=== PATIENT | male | born 1955 | race Caucasian/White ===

== ENCOUNTER 2017-02-19 17:10 | Inpatient (IN) | payer OTHER ==
[~2017-02-19] VITALS: Ht 182.9 cm; Wt 73.5 kg
--- NOTE | ~2017-02-19 | 2DMMODE ---
[facility] [place] [place] [address] 2 D/M-MODE ECHOCARDIOGRAM Name: FABIAN MATIAS Room #: 213-P ADM IN M.R.#: [id number] Admission: 02/19/17 Attend Phys: Vanessa Townsend Discharge: Date of : 51 Date of Service: 02/20/17 1032 Report #: [id number] THIS REPORT FOR: //name// APPROVED REPORT Study performed: 02/20/2017 09:00:42 EXAM: Comprehensive 2D, Doppler, and color-flow Echocardiogram Patient Location: Bedside Room #: 213 Status: routine BSA: 1.95 HR: 70 bpm BP: 125/77 mmHg Other Information Study Quality: Adequate Indications Dyspnea Chest Pain 2D Dimensions RVDd: 32.17 mm LVOT Diam: 21.72 (18-24mm) IVC: 14.00 mm Volumes Left Atrial Volume (Systole) Single Plane 4CH: 34.51 mL Single Plane 2CH: 33.67 mL LA ESV Index: 20.00 mL/m2 Aortic Valve AoV Peak Mando.: 1.35 m/s AO Peak Gr.: 7.32 mmHg LVOT Max P.44 mmHg LVOT Max V: 0.93 m/s MANUELA Vmax: 2.54 cm2 Mitral Valve E/A Ratio: 1.1 MV Decel. Time: .13 ms MV E Max Mando.: 0.73 m/s MV A Mando.: 0.67 m/s MV PHT: 58.91 ms IVRT: 64.59 ms [facility] [address] [place] [address] 2 D/M-MODE ECHOCARDIOGRAM Name: FABIAN MATIAS Room #: 213-P [facility] IN ..#: [id number] Admission: 02/19/17 Attend Phys: Vanessa Townsend Discharge: Date of : 51 Date of Service: 02/20/17 1032 Report #: [id number] Pulmonary Valve PV Peak Mando.: 0.77 m/s PV Peak Gr.: 2.35 mmHg Pulmonary Vein P Vein S: 0.42 m/s P Vein A: 0.28 m/s P Vein D: 0.28 m/s P Vein A Dur.: 101.5 msec P Vein S/D Ratio: 1.50 Left Ventricle The left ventricle is normal size. There is normal left ventricular wall thickness. The left ventricular systolic function is normal. The left ventricular ejection fraction is within the normal range. LVEF is 55-60%. The left ventricular diastolic function is normal. Right Ventricle The right ventricle is normal size. The right ventricular systolic function is normal. Atria The left atrium size is normal. The right atrium size is normal. Aortic Valve The aortic valve is normal in structure. No aortic regurgitation is present. There is no aortic valvular stenosis. Mitral Valve The mitral valve is normal in structure. Trace mitral regurgitation. No evidence of mitral valve stenosis. Tricuspid Valve The tricuspid valve is normal in structure. There is no tricuspid valve regurgitation noted. Pulmonic Valve The pulmonary valve is normal in structure. There is no pulmonic valvular regurgitation. Great Vessels The aortic root is normal in size. IVC is normal in size and collapses >50% with inspiration. Pericardium There is no pericardial effusion. [facility] [place] [address] [place] [address] 2 D/M-MODE ECHOCARDIOGRAM Name: FABIAN MATIAS Room #: 213-P ADM IN M.R.#: [id number] Admission: 02/19/17 Attend Phys: Vanessa Townsend Discharge: Date of : 51 Date of Service: 02/20/17 103 Report #: [id number] <Conclusion> The left ventricle is normal size. LVEF is 55-60%. The aortic valve is normal in structure. The mitral valve is normal in structure. Trace mitral regurgitation. The tricuspid valve is normal in structure. The pulmonary valve is normal in structure. There is no pericardial effusion. <ELECTRONICALLY SIGNED> By: Marcio Choi MD 02/20/171031 31 1032 Marcio Choi MD /INF
--- NOTE | ~2017-02-19 | EXE ---
[facility] [address] [place] [address] STRESS ECHOCARDIOGRAM Name: FABIAN MATIAS Room #: 213-P ADM IN M.R.#: [id number] Admission: 02/19/17 Attend Phys: Vanessa Townsend Discharge: Date of : 51 Date of Service: 02/20/17 1619 Report #: [id number] THIS REPORT FOR: //name// APPROVED REPORT Exam: Stress Echocardiogram Indication: Chest pain , Palpitations Patient Location: Echo lab Stress Nurse: Rubia Burns RN Room #: 213 Status: routine Ht: 6 ft 0 in HR: 83 bpm BP: 128/78 mmHg Rhythm: NSR with PVCs noted. Medical History Medications: No cardiac medications Allergies: No known drug allergies Cardiac Risk Factors: FHX of CAD Echo Enhancing Agent Indication: Endocardial border delineation Agent(s) / Amount(s) Used: Optison 3 cc Stress Test Details Stress Test: Exercise stress testing was performed using a Kash protocol. HR Resting HR: 83 bpm Max Heart Rate (APMHR): 157 bpm Max HR Achieved: 164 bpm Target HR (85% APMHR): 133 bpm % of APMHR: 104 Recovery HR: 111 bpm HR response to stress: Normal HR response to stress BP Resting BP: 128/78 mmHg Max BP: 190/90 mmHg Recovery BP: 160/70 mmHg ECG Resting ECG: Sinus Rhythm Stress ECG: Sinus Tachycardia Arrhythmia: None Recovery ECG: Sinus Rhythm [facility] [address] [place] [address] STRESS ECHOCARDIOGRAM Name: KARYYENYFABIAN Mantilla Paige Room #: 213-P [facility] IN ..#: [id number] Admission: 02/19/17 Attend Phys: Vanessa Townsend Discharge: Date of : 51 Date of Service: 02/20/171618 Report #: [id number] Clinical Reason for Termination: Completed protocol/fatigue Exercise duration: 8 min 16 sec Highest Stage Achieved: Stage 3: 3.4 mph at 14% grade. Exercise capacity: 10.40 METs Stress ECG Conclusion 1. SUBJECTIVELY NEGATIVE FOR IASCHEMIA 2.ELECTROCARDIOGRAPHICALLY NEGATIVE FOR ISCHEMIA 3. AVERAGE FUNCTIONAL CAPACITY Pre-Stress Echo The resting Echocardiogram showed normal left ventricular contractility with an estimated Ejection Fraction of about 55-60%. No significant valvualr abnormalities noted. Post-Stress Echo The stress Echocardiogram showed normal left ventricular contractility with an estimated Ejection Fraction of about >70%. Normal augmentation of wall motion in all segments on post stress images. Conclusion Clinical Response: Non-ischemic Exercise Capacity: Average Stress ECG Response: Non-ischemic Stress Echo Images: Non-ischemic 1. LOW RISK STUDY Other Information Study Quality: Adequate <Conclusion> 1. LOW RISK STUDY <ELECTRONICALLY SIGNED> By: Marcio Choi MD [id number] 18 Marcio Choi MD /INF
--- NOTE | ~2017-02-19 | EKG ---
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
[2017-02-19 17:14] VITALS: BP 176/95
[2017-02-19 17:36] LABS: ABSOLUTE NEUTROPHILS 5.5 thou/uL (1.4-8.2); BASOPHILS 0.5 % (0.0-2.0); EOSINOPHILS 1.2 % (0.0-3.0); HEMATOCRIT 45.6 % (42.0-52.0); HEMOGLOBIN 15.6 gm/dL (14.0-18.0); LYMPHOCYTES 15.8 % (24.0-44.0); MANUAL DIFF NO; MCH 29.3 pg (26.0-34.0); MCHC 34.2 g/dL (28.0-37.0); MCV 85.6 fL (80.0-100.0); PLATELET COUNT 283 thou/uL (150-400); POLYS 76.5 % (36.0-66.0); RBC 5.32 mil/uL (4.50-6.00); RDW 13.6 % (10.5-14.5); WBC 7.1 thou/uL (4.0-11.0)
[2017-02-19 17:43] LABS: ANION GAP 9 mmol/L (7-16); BUN 14 mg/dL (7-18); CALCIUM 9.6 mg/dL (8.5-10.1); CHLORIDE 103 mmol/L (98-107); CO2 30 mmol/L (21-32); GLUCOSE 107 mg/dL (74-106); SODIUM 142 mmol/L (136-145)
[2017-02-19 17:52] LABS: TROPONIN-I < 0.04 ng/mL (<0.06)
[2017-02-19 20:29] VITALS: BP 143/91
[2017-02-19 21:57] VITALS: BP 151/91
[2017-02-19 22:00] VITALS: BP 151/91
[2017-02-20 00:20] VITALS: BP 140/83
[2017-02-20 01:51] LABS: HEMATOCRIT 43.6 % (42.0-52.0); HEMOGLOBIN 14.4 gm/dL (14.0-18.0); MCH 28.6 pg (26.0-34.0); MCV 86.5 fL (80.0-100.0); RBC 5.04 mil/uL (4.50-6.00); RDW 13.7 % (10.5-14.5); WBC 6.4 thou/uL (4.0-11.0)
[2017-02-20 02:08] LABS: ANION GAP 5 mmol/L (7-16); BUN 12 mg/dL (7-18); CALCIUM 8.7 mg/dL (8.5-10.1); CHLORIDE 107 mmol/L (98-107); CHOLESTEROL 180 mg/dL (<200); CO2 30 mmol/L (21-32); CREATININE 0.9 mg/dL (0.7-1.3); GLUCOSE 99 mg/dL (74-106); HDL CHOLESTEROL 52 mg/dL (>40); LDL CHOLESTEROL 110 mg/dL (<100); POTASSIUM 4.3 mmol/L (3.5-5.1); SODIUM 142 mmol/L (136-145); TC:HDL 3.5 Ratio (Not establshd); TRIGLYCERIDE 92 mg/dL (<150); VLDL 18 mg/dL (<40)
[2017-02-20 04:15] VITALS: BP 130/81
[2017-02-20 07:29] VITALS: BP 125/77
[2017-02-20 11:35] VITALS: BP 128/78
[2017-02-20 15:28] VITALS: BP 118/75
[2017-02-20 16:08] LABS: GLYCOHEMOGLOBIN (HGB A1C) 5.4 % (4.8-5.6)
[2017-02-20 17:33] VITALS: BP 118/75
== END 2017-02-20 17:55 | disposition home or self-care (01) | DRG 313 ==
LOC: ER 17:10 → EROBS 19:37 → 2N 19:37
PROVIDERS: Nurse Practitioner; Nurse Practitioner Family
PROC: B24BZZ4 Ultrasonography of Heart with Aorta, Transesophageal (ICD-10-PCS; principal; 2017-02-20)
DX: R07.89 Other chest pain (principal); R00.2 Palpitations; M79.605 Pain in left leg; F41.9 Anxiety disorder, unspecified; Z82.49 Family history of ischemic heart disease and other diseases of the circulatory system
CPT/HCPCS: 10081